=== PATIENT | female | born 1950 | race Caucasian/White ===

== ENCOUNTER 2016-08-13 17:36 | Emergency (ER) | payer BC, OTHER ==
[2016-08-13 18:03] VITALS: BP 135/61
--- NOTE | 2016-08-13 18:11 | UC ---
Knee Pain HPI - HPI Summary HPI Summary: fellwhile out walking on the track at the [facility] today---pain and swelling right knee - History of Current Complaint Chief Complaint: UCLowerExtremity Stated Complaint: RIGHT KNEE PAIN Time Seen by Provider: 08/13/16 17:56 Hx Obtained From: Patient ?: No Onset/Duration: Sudden Onset, Lasting Hours Severity Initially: Mild Severity Currently: Mild Location Of Injury: right knee Pain Intensity: 5 Pain Scale Used: 0-10 Numeric Character: Aching, Throbbing Aggravating Factor(s): Movement, Weight Bearing Alleviating Factor(s): Rest Associated Signs And Symptoms: Positive: Swelling, Redness, Bruising Able to Bear Weight: Yes - Allergies/Home Medications Allergies/Adverse Reactions: Allergies Allergy/AdvReac Type Severity Reaction Status Date / Time No Known Allergies Allergy Verified 08/13/16 18:03 Home Medications: Home Medications Naproxen Sodium 220 mg PO ONCE PRN 08/13/16 [History Confirmed 08/13/16] PMH/Surg Hx/FS Hx/Imm Hx Previously Healthy: No Endocrine History Of: Reports: Dyslipidemia Cardiovascular History Of: Reports: Cardiac Disorders Psychological History Of: Reports: Anxiety - Surgical History Surgical History: Yes Surgery Procedure, Year, and Place: RIGHT KNEE SURGERYS, TORN MINICUS, , RIGHT SHOULDER SURGERY. - Family History Family History: unknown cardiovascular issues in family lineage - Social History Occupation: Retired Lives: Alone Alcohol Use: Occasionally Substance Use Type: None Smoking Status (MU): Never Smoked Tobacco Review of Systems Constitutional: Negative Skin: Bruising - right knee Eyes: Negative ENT: Negative Respiratory: Negative Cardiovascular: Negative Gastrointestinal: Negative Genitourinary: Negative Motor: Negative Neurovascular: Negative Musculoskeletal: Arthralgia - right knee, Edema - right knee Neurological: Negative Psychological: Negative All Other Systems Reviewed And Are Negative: Yes Physical Exam Triage Information Reviewed: Yes Appearance: Well-Appearing, Well-Nourished, Pain Distress - mild Vital Signs: Initial Vital Signs Temp 98.5 F 08/13/16 17:57 Pulse 72 08/13/16 17:57 Resp 22 08/13/16 17:57 BP 135/61 08/13/16 17:57 Pulse Ox 100 08/13/16 17:57 Vital Signs Reviewed: Yes Eye Exam: Normal Eyes: Positive: Conjunctiva Clear ENT Exam: Normal ENT: Positive: Normal ENT inspection, Hearing grossly normal. Negative: Nasal congestion, Nasal drainage, Tonsillar swelling, Tonsillar exudate, Trismus, Muffled/hoarse voice Neck exam: Normal Neck: Positive: Supple, Nontender, No Lymphadenopathy Respiratory Exam: Normal Respiratory: Positive: Chest non-tender, Lungs clear, Normal breath sounds, No respiratory distress, No accessory muscle use Cardiovascular Exam: Normal Cardiovascular: Positive: RRR, No Murmur, Pulses Normal, Brisk Capillary Refill Musculoskeletal Exam: Other Musculoskeletal: Positive: Strength Intact, ROM Intact, Edema @ - right knee Neurological Exam: Normal Neurological: Positive: Alert, Muscle Tone Normal Psychological Exam: Normal Psychological: Positive: Normal Response To Family Skin: Positive: Other - brusing and redness on right knee Diagnostics - Laboratory Diagnostic Studies Completed/Ordered: no acute changes in right knee, osteoarthris Knee Pain Course/Dx - Course Course Of Treatment: carey, rice, aleeve, tylenol, follow with pcp - Differential Dx/Diagnosis Differential Diagnosis/HQI/PQRI: Contusion, Fracture (Closed), Internal Derangement Of Knee, Sprain, Strain Provider Diagnoses: Right knee contusion Discharge - Discharge Plan Condition: Stable Disposition: HOME Patient Education Materials: Acetaminophen (By mouth), Naproxen (By mouth), Contusion in Adults (ED), Knee Pain (ED), RICE Therapy (ED) Referrals: Hi Sykes MD [Primary Care Provider] - 5 Days
[2016-08-13] MEDS ORDERED: Acetaminophen TAB* 325 MG PO ONE (18:12)
--- NOTE | 2016-08-13 18:57 | RAD ---
Indication: Knee pain after fall. 4 views of the right knee demonstrates degenerative changes of the patellofemoral joint as well as joint space narrowing in the lateral compartment. Valgus deformity is noted. IMPRESSION: Degenerative changes of the patellofemoral joint as well as in the lateral compartment of the left knee.
== END 2016-08-13 19:15 | disposition home or self-care (01) ==
LOC: UCCORT 17:36
DX: S80.01XA Contusion of right knee, initial encounter (principal); M17.11 Unilateral primary osteoarthritis, right knee; W19.XXXA Unspecified fall, initial encounter; Y93.01 Activity, walking, marching and hiking; Y92.9 Unspecified place or not applicable; Z98.890 Other specified postprocedural states
CPT/HCPCS: 99212; A9270-GY; G0463

== ENCOUNTER 2016-11-07 21:13 | Emergency (ER) | payer BC ==
[2016-11-07 22:01] VITALS: BP 140/61
[2016-11-07] MEDS ORDERED: Ibuprofen TAB* 600 MG PO ONE (22:03)
--- NOTE | 2016-11-07 22:22 | UC ---
Lower Extremity/Ankle HPI - History of Current Complaint Stated Complaint: LEFT FOOT PAIN FROM FALL Time Seen by Provider: 11/07/16 21:57 Hx Obtained From: Patient ?: No Onset/Duration: Sudden Onset - twisted foot missing a step at the playground chasing 2 1/2 yo grand daughter., Lasting Hours - 5, Still Present Aggravating Factor(s): Standing, Ambulation Alleviating Factor(s): Rest, Elevation Able to Bear Weight: Yes - Risk Factors Gout Risk Factors: Age Over 40 - Allergies/Home Medications Allergies/Adverse Reactions: Allergies Allergy/AdvReac Type Severity Reaction Status Date / Time No Known Allergies Allergy Verified 11/07/16 21:50 PMH/Surg Hx/FS Hx/Imm Hx Endocrine History Of: Reports: Dyslipidemia Cardiovascular History Of: Reports: Cardiac Disorders Psychological History Of: Reports: Anxiety - Surgical History Surgical History: Yes Surgery Procedure, Year, and Place: RIGHT KNEE SURGERYS, TORN MINICUS, , RIGHT SHOULDER SURGERY. - Family History Known Family History: Positive: Diabetes Family History: unknown cardiovascular issues in family lineage - Social History Occupation: Retired Lives: With Family Alcohol Use: Occasionally Substance Use Type: None Smoking Status (MU): Never Smoked Tobacco Review of Systems Musculoskeletal: Arthralgia All Other Systems Reviewed And Are Negative: Yes Physical Exam Triage Information Reviewed: Yes Appearance: Well-Appearing, Well-Nourished, Pain Distress - with exam of the foot Vital Signs Reviewed: Yes Eyes: Positive: Conjunctiva Clear Neck exam: Normal Respiratory Exam: Normal Cardiovascular Exam: Normal Musculoskeletal: Positive: ROM Limited @ - left foot, unable to walk., Other: - Tenderness over the 5th metatarsal base. Neurological Exam: Normal Psychological Exam: Normal Skin Exam: Normal Lower Extremity Course/Dx - Differential Dx/Diagnosis Differential Diagnosis/HQI/PQRI: Dislocation, Fracture (Closed), Fracture (Open) , Sprain Provider Diagnoses: Fracture left 5th metatarsal Discharge - Discharge Plan Condition: Stable Disposition: HOME Patient Education Materials: Foot Fracture in Adults (ED) Referrals: Hi Sykes MD [Primary Care Provider] - Brian Arroyo MD [Medical Doctor] - 2 Days (Follow up left foot fracture.)
--- NOTE | 2016-11-07 22:30 | RAD ---
HISTORY: Trauma, pain over base of fifth metatarsal of left foot COMPARISONS: June 12, 2015 VIEWS: 3, Frontal, lateral, and oblique views of the left foot FINDINGS: BONE DENSITY: Normal. BONES: There is a nondisplaced fracture of the distal fourth metatarsal. There is a transverse nondisplaced fracture of the proximal fifth metatarsal, approximately 2.4 cm from the base. There is a nondisplaced fracture of the base of the fifth metatarsal. JOINTS: There is no arthropathy. ALIGNMENT: There is no dislocation. SOFT TISSUES: Unremarkable. OTHER FINDINGS: None. IMPRESSION: 2 NONDISPLACED FRACTURES OF THE PROXIMAL FIFTH METATARSAL WITH A NONDISPLACED FRACTURE OF THE DISTAL FOURTH METATARSAL
== END 2016-11-07 22:53 | disposition home or self-care (01) ==
LOC: UCCORT 21:13
DX: S92.355A Nondisplaced fracture of fifth metatarsal bone, left foot, initial encounter for closed fracture (principal); S92.345A Nondisplaced fracture of fourth metatarsal bone, left foot, initial encounter for closed fracture; X50.1XXA Overexertion from prolonged static or awkward postures, initial encounter; Y93.02 Activity, running; Y92.838 Other recreation area as the place of occurrence of the external cause; E78.5 Hyperlipidemia, unspecified; F41.9 Anxiety disorder, unspecified
CPT/HCPCS: 99213; A9270-GY; G0463

== ENCOUNTER 2017-11-06 19:57 | Emergency (ER) | payer BC, MEDICARE ==
[2017-11-06 20:39] VITALS: BP 125/62
--- NOTE | 2017-11-06 20:40 | UC ---
Respiratory Complaint HPI - HPI Summary HPI Summary: 67 y/o female presents to the urgent care c/o sore throat, nasal congestion and yellowish nasal discharge w/ dry cough for the past 4 days. Pt reports low grade fever w/ mild sinus pain and pressure. Pt has taken Aleve PO to alleviate symptoms. Pt denies SOB, chest pain, abdominal pain, N/V/D. Pt has Hx of recurrnet sinusitis. - History of Current Complaint Chief Complaint: UCGeneralIllness Stated Complaint: UPPER RESPIRATORY Time Seen by Provider: 11/06/17 20:40 Hx Obtained From: Patient Onset/Duration: Gradual Onset, Lasting Days - 4 days, Still Present, Worse Since - yesterday Timing: Constant Severity Initially: Mild Severity Currently: Moderate Pain Intensity: 4 Pain Scale Used: 0-10 Numeric Character: Cough: Nonproductive Aggravating Factors: Recumbent Position Alleviating Factors: Nothing Associated Signs And Symptoms: Positive: Chills, URI, Nasal Congestion, Sinus Discomfort - Risk Factors Pulmonary Embolism Risk Factors: Negative Cardiac Risk Factors: Negative Pseudomonas Risk Factors: Negative Tuberculosis Risk Factors: Negative - Allergies/Home Medications Allergies/Adverse Reactions: Allergies Allergy/AdvReac Type Severity Reaction Status Date / Time No Known Allergies Allergy Verified 11/06/17 20:31 Home Medications: Home Medications Aspirin [Adult Aspirin] 81 mg PO BEDTIME 11/06/17 [History Confirmed 11/06/17] Cholecalciferol (Vitamin D3) [Vitamin D3] 2,000 unit PO DAILY 11/06/17 [History Confirmed 11/06/17] Fluoxetine HCl [Prozac] 10 mg PO DAILY 11/06/17 [History Confirmed 11/06/17] Gluc Bowser/Chondro Bowser A/Vit C/Mn [Glucosamine Chondroitin Tab] 1 tab PO DAILY 11/06 [History Confirmed 11/06/17] PMH/Surg Hx/FS Hx/Imm Hx Previously Healthy: Yes Endocrine History: Dyslipidemia Cardiovascular History: Hypertension Psychological History: Anxiety - Surgical History Surgical History: Yes Surgery Procedure, Year, and Place: RIGHT KNEE SURGERYS, TORN MINICUS SX X 2, , RIGHT SHOULDER SURGERY. - Family History Known Family History: Positive: Diabetes Family History: unknown cardiovascular issues in family lineage - Social History Occupation: Retired Lives: With Family Alcohol Use: Occasionally Substance Use Type: None Smoking Status (MU): Never Smoked Tobacco Review of Systems Constitutional: Negative Skin: Negative Eyes: Negative ENT: Sore Throat, Nasal Discharge, Sinus Congestion, Sinus Pain/Tenderness Respiratory: Cough - dry Cardiovascular: Negative Gastrointestinal: Negative Genitourinary: Negative Motor: Negative Neurovascular: Negative Musculoskeletal: Negative Neurological: Negative Psychological: Negative Is Patient Immunocompromised?: No All Other Systems Reviewed And Are Negative: Yes Physical Exam - Summary Physical Exam Summary: Vitals: reviewed General: Well developed, well-nourished female patient with NAD. Head and face: Normocephalic and atraumatic, Positive tenderness over the frontal and maxillary sinuses.. Eyes: PERRLA, EOMI x 2. Normal conjunctiva. No eye discharge. ENT: Ears and TM with normal limits. Nose: edematous and erythematous nasal mucosa with with yellowish discharge and erythematous mucosa. Pharynx with erythema, no exudate. +PND yellowish Neck: Supple, no JVD, no carotid bruits and no lymphadenopathy. Lungs: clear, no rales, no rhonchi, no wheezes. CVS: RRR, S1 and S2 present no murmurs or gallops appreciated. Abdomen: soft nontender with positive bowel sounds. Extremities: no edema noted. Neuro: WNL. Skin: warm and dry Triage Information Reviewed: Yes Vital Signs: Initial Vital Signs Temp 97.3 F 11/06/17 20:36 Pulse 70 11/06/17 20:36 Resp 17 11/06/17 20:36 BP 125/62 11/06/17 20:36 Pulse Ox 100 11/06/17 20:36 Diagnostic Evaluation - Laboratory O2 Sat by Pulse Oximetry: 100 Respiratory Course/Dx - Course Course Of Treatment: 67 y/o female presents to the urgent care c/o sore throat, nasal congestion and yellowish nasal discharge w/ dry cough for the past 4 days. Pt reports low grade fever w/ mild sinus pain and pressure. Pt has taken Aleve PO to alleviate symptoms. Pt denies SOB, chest pain, abdominal pain, N/V /D. Pt has Hx of recurrent sinusitis. Hx obtained. Pt w/ a sinusitis on examination. Pt Rx Flonase Nasal [place] and Loratadine Po. However Pt requested ABx Tx. Pt advised to try to alleviate symptoms first and if worsening symptoms to start Augmenting PO in 2-3 days. Pt Advised to increase fluid intake and rest. Pt Understood and agreed w/ plan of care. - Differential Dx/Diagnosis Differential Diagnosis/HQI/PQRI: Asthma, Bronchitis, Influenza, Laryngitis, Lower Resp Infection, Sinusitis Provider Diagnoses: 1- Acute sinusitis Discharge - Sign-Out/Discharge Documenting (check all that apply): Discharge/Admit/Transfer - D/C home - Discharge Plan Condition: Stable Disposition: HOME Prescriptions: Amoxicillin/Clavulanate TAB* [Augmentin TAB 875*] 875 mg PO BID #20 tab Fluticasone NASAL SPRAY 50MCG* [Flonase NASAL SPRAY 50MCG*] 2 spray BOTH NARES DAILY #1 btl Loratadine/Pseudoephedrine [Loratadine-D 12 Hour Tablet] 1 each PO BID #20 tab.er.12h Patient Education Materials: Sinusitis (ED) Referrals: Hi Sykes MD [Primary Care Provider] - 1 Week Additional Instructions: 1- Please increase fluid intake and rest. 2-Use Flonase as directed to help drain fluid. Also buy saline drops to clear sinuses 3-Take Loratadine PO to alleviates sinus congestion, If symptoms do not improve in 2 days please start taking Augmentin PO and take full course of antibiotic. 4-Return to the clinic or PCP if symptoms do not improve for further management and treatment - Billing Disposition and Condition Condition: STABLE Disposition: HOME
== END 2017-11-06 21:33 | disposition home or self-care (01) ==
LOC: UCCORT 19:57
DX: J01.90 Acute sinusitis, unspecified (principal); F41.9 Anxiety disorder, unspecified
CPT/HCPCS: 99212; G0463

== ENCOUNTER 2017-12-07 21:41 | Emergency (ER) | payer MEDICARE ==
[2017-12-07 21:55] VITALS: BP 131/71
--- NOTE | 2017-12-07 22:04 | UC ---
Knee Pain HPI - HPI Summary HPI Summary: 67 yo female twisted knee today on uneven ground initially marked pain with movement no ROM seem good knee wants to buckle on occasion - History of Current Complaint Chief Complaint: UCLowerExtremity Stated Complaint: KNEE (L) COMPLAINT Time Seen by Provider: 12/07/17 21:56 Hx Obtained From: Patient Onset/Duration: Sudden Onset, Lasting Hours Severity Initially: Moderate Severity Currently: Moderate Pain Intensity: 5 Pain Scale Used: 0-10 Numeric - Allergies/Home Medications Allergies/Adverse Reactions: Allergies Allergy/AdvReac Type Severity Reaction Status Date / Time No Known Allergies Allergy Verified 11/06/17 20:31 Home Medications: Home Medications Ibuprofen TAB* [Advil TAB*] 200 mg PO Q6H PRN 12/07/17 [History Confirmed ] PMH/Surg Hx/FS Hx/Imm Hx Endocrine History: Dyslipidemia Cardiovascular History: Hypertension - Surgical History Surgical History: Yes Surgery Procedure, Year, and Place: RIGHT KNEE SURGERYS, TORN MINICUS SX X 2, , RIGHT SHOULDER SURGERY. - Family History Known Family History: Positive: Hypertension, Diabetes Family History: unknown cardiovascular issues in family lineage - Social History Alcohol Use: Occasionally Substance Use Type: None Smoking Status (MU): Never Smoked Tobacco Review of Systems Constitutional: Negative Skin: Negative Eyes: Negative ENT: Negative Respiratory: Negative Cardiovascular: Negative Gastrointestinal: Negative Genitourinary: Negative Motor: Negative Neurovascular: Negative Musculoskeletal: Arthralgia Neurological: Negative Psychological: Negative Is Patient Immunocompromised?: No All Other Systems Reviewed And Are Negative: Yes Physical Exam Triage Information Reviewed: Yes Appearance: Well-Appearing, No Pain Distress, Well-Nourished Vital Signs: Initial Vital Signs Temp 99.3 F 12/07/17 21:50 Pulse 73 12/07/17 21:50 Resp 18 12/07/17 21:50 BP 131/71 12/07/17 21:50 Pulse Ox 98 12/07/17 21:50 Eyes: Positive: Conjunctiva Clear ENT: Positive: Hearing grossly normal. Negative: Nasal congestion, Trismus, Muffled voice, Hoarse voice Neck: Positive: Supple Respiratory: Positive: Lungs clear, Normal breath sounds, No respiratory distress, No accessory muscle use Cardiovascular: Positive: RRR, No Murmur Musculoskeletal: Positive: ROM Intact, Other: - antalgic gait, knee feels stable , tender lateral joint line (L) Neurological: Positive: Alert Psychological Exam: Normal Skin Exam: Normal Diagnostics - Radiology No standard instances Xray Interpretation: No Acute Changes - djd Radiology Interpretation Completed By: ED Physician Knee Pain Course/Dx - Differential Dx/Diagnosis Provider Diagnoses: left knee injury. ? meniscal tear Discharge - Sign-Out/Discharge Documenting (check all that apply): Discharge/Admit/Transfer - Discharge Plan Condition: Stable Disposition: HOME Patient Education Materials: Knee Pain (ED) Referrals: Brian Arroyo MD [Medical Doctor] - As Soon As Possible Hi Sykes MD [Primary Care Provider] - Additional Instructions: ice twice daily use your knee brace when up cane advil or aleve I suggest you see the Dr. Arroyo in follow up you may need and MRI of your knee - Billing Disposition and Condition Condition: STABLE Disposition: Home
--- NOTE | 2017-12-08 08:01 | RAD ---
Indication: Anterior and posterior LEFT knee pain and instability following twisting injury. Comparison: October 04, 2009 Technique: LEFT knee: AP, tunnel, lateral, sunrise views. Report: Small suprapatellar joint effusion. Negative for fracture or malalignment. Mild osteophytosis and tricompartmental joint space narrowing. Mild nonfocal soft tissue swelling. IMPRESSION: 1. Negative for fracture. 2. Kellgren and Carlos grade 2 osteoarthritis. 3. Small joint effusion.
== END 2017-12-07 22:28 | disposition home or self-care (01) ==
LOC: UCCORT 21:41
DX: S89.92XA Unspecified injury of left lower leg, initial encounter (principal); X50.0XXA Overexertion from strenuous movement or load, initial encounter; Y93.9 Activity, unspecified; Y92.9 Unspecified place or not applicable; Y99.9 Unspecified external cause status; I10 Essential (primary) hypertension
CPT/HCPCS: 99213; G0463

== ENCOUNTER 2019-10-15 12:05 | Emergency (ER) | payer MEDICARE ==
[2019-10-15 12:34] VITALS: BP 131/58
--- NOTE | 2019-10-15 12:34 | UC ---
Skin Complaint HPI - HPI Summary HPI Summary: 69 y/o female presents to the urgent care c/o tick in her abdomen since yesterday. Pt reports she went outside yesterday to do some gardening and in the afternoon noticed a tick in her abdomen. She was unable to remove and the tick still alive. Pt denies fever, rash, joint pains, URI symptoms, cough, SOB , sick contacts, abdominal pain, N/V/D. Hx of tick bites. - History of Current Complaint Time Seen by Provider: 10/15/19 12:33 Stated Complaint: TICK Hx Obtained From: Patient Onset/Duration: Sudden Onset, Lasting Days - 1 day, Still Present - tick still present in her abdomen and it is alive Skin Exposure Onset/Duration: Days Ago - 1 day Onset Severity: Mild Current Severity: Mild Pain Intensity: 0 Pain Scale Used: 0-10 Numeric Location: Discrete - abdomen below umbilicus Character: Redness Aggravating Factor(s): Touch Alleviating Factor(s): Nothing Associated Signs & Symptoms: Positive: Rash - tick bite w/ alive tick still present in her abdomen Related History: Possible Reaction to: Insect - tick - Allergy/Home Medications Allergies/Adverse Reactions: Allergies Allergy/AdvReac Type Severity Reaction Status Date / Time No Known Allergies Allergy Verified 10/15/19 12:34 Home Medications: Home Medications Atorvastatin* [Lipitor 20 MG*] 20 mg PO BEDTIME 05/28/15 [History Confirmed ] Propranolol TAB* [Inderal TAB*] 80 mg PO DAILY 05/28/15 [History Confirmed 10/14] traZODone TAB* [Desyrel TAB*] 50 mg PO BEDTIME 05/28/15 [History Confirmed 10/14] Aspirin [Adult Aspirin] 81 mg PO BEDTIME 11/06/17 [History Confirmed 10/15/19] Cholecalciferol (Vitamin D3) [Vitamin D3] 2,000 unit PO DAILY 11/06/17 [History Confirmed 10/15/19] Fluoxetine HCl [Prozac] 10 mg PO DAILY 11/06/17 [History Confirmed 10/15/19] Gluc Bowser/Chondro Bowser A/Vit C/Mn [Glucosamine Chondroitin Tab] 1 tab PO DAILY 11/06 [History Confirmed 10/15/19] Bacitracin OINTMENT* 1 applic TOPICAL BID #1 tube 10/15/19 [Rx] Loratadine/Pseudoephedrine [Loratadine-D 12 Hour Tablet] 1 each PO BID PRN 10/14 [History Confirmed 10/15/19] PMH/Surg Hx/FS Hx/Imm Hx Previously Healthy: Yes Endocrine History: Dyslipidemia Cardiovascular History: Hypertension - Surgical History Surgical History: Yes Surgery Procedure, Year, and Place: RIGHT KNEE SURGERYS, TORN MINICUS SX X 2, , RIGHT SHOULDER SURGERY. - Family History Known Family History: Positive: Hypertension, Diabetes Family History: unknown cardiovascular issues in family lineage - Social History Occupation: Retired Lives: With Family Alcohol Use: Occasionally Substance Use Type: None Smoking Status (MU): Never Smoked Tobacco Review of Systems All Other Systems Reviewed And Are Negative: Yes Constitutional: Positive: Negative Skin: Positive: Rash - alive tick still present in her abdomen Eyes: Positive: Negative ENT: Positive: Negative Respiratory: Positive: Negative Cardiovascular: Positive: Negative Gastrointestinal: Positive: Negative Genitourinary: Positive: Negative Motor: Positive: Negative Neurovascular: Positive: Negative Musculoskeletal: Positive: Negative Neurological/Mental Status: Positive: Negative Psychological: Positive: Negative Is Patient Immunocompromised?: No Physical Exam - Summary Physical Exam Summary: Vital Signs Reviewed: Yes General: well developed, well nourished female sitting in the examining table w/ o any apparent distress. Eyes: Positive: Conjunctiva Clear - PERRLA, EOMI ENT: Positive: Normal ENT inspection, Hearing grossly normal, Pharynx normal, TMs normal Neck: Positive: Supple, Nontender, No Lymphadenopathy Respiratory: Positive: Chest nontender, Lungs clear, Normal breath sounds Cardiovascular: Positive: RRR, No Murmur, Pulses Normal Abdomen Description: Positive: Nontender, No Organomegaly, Soft. Negative: CVA Tenderness (R), CVA Tenderness (L) Bowel Sounds: Positive: Present Musculoskeletal: Positive: Strength Intact, ROM Intact, No Edema Neurological Exam: Normal Psychological Exam: Normal Skin: Positive: rashes: below umbilicus with an engorged alive tick present, non tender to palpation., no swelling or drainage observed. Triage Information Reviewed: Yes Course/Dx - Course Course Of Treatment: 69 y/o female presents to the urgent care c/o tick in her abdomen since yesterday. Pt reports she went outside yesterday to do some gardening and in the afternoon noticed a tick in her abdomen. She was unable to remove and the tick still alive. Pt denies fever, rash, joint pains, URI symptoms, cough, SOB , sick contacts, abdominal pain, N/V/D. Hx of tick bites. Hx obtained. Pt w/ positive engorged alive tick present below her umbilicus, non tender to palpation, no swelling or drainage observed on examination. Tick was removed from abdomen using twister technique. After tick removal and the skin cleansing and Bacitracin oint applied. Antibiotic prophylaxis with Doxycycline given to the patient to prevent lyme Disease.. Pt tolerated well medication. Pt advised to observe the area for the development or Erythema Migrans for upto 30 days following exposure. Pt Rx Bacitracin oin as directed below to prevent infection. Advised if he develops fever or erythema Migrans to return to the clinic or PCP for further treatment .Pt understood and agreed with plan of care. - Differential Diagnoses - Skin Complaint Differential Diagnoses: Abscess, MRSA, Tick Born Illness, Urticaria, Other - bee sting, insect bite - Diagnoses Provider Diagnosis: Tick bite of abdomen Discharge ED - Sign-Out/Discharge Documenting (check all that apply): Patient Departure - D/C home All imaging exams completed and their final reports reviewed: No Studies - Discharge Plan Condition: Stable Disposition: HOME Prescriptions: Bacitracin OINTMENT* 1 applic TOPICAL BID #1 tube Patient Education Materials: Tick Bite (ED) Referrals: Hi Sykes MD [Primary Care Provider] - 1 Week Additional Instructions: 1- Please observe the area for the development or Erythema Migrans for upto 30 days following exposure. Components of the tick saliva can cause transient erythema that should not be confused with Erythema Migrans. If you develop the bull's eye rash, fever, joint pains please return to the urgent care or f/u with your PCP or Dr Nicholas for further management. Apply Bacitracin oint around tick bite as directed 2-Antibiotic prophylaxis with Doxycycline was given to you today to prevent lyme Disease. Lyme serology can be drawn in 2 weeks with your PCP to r/o Lyme disease since there is probability of negative results at early exposure. - Billing Disposition and Condition Condition: STABLE Disposition: Home - Attestation Statements Provider Attestation: This patient was not seen by me. Chart reviewed. I was available for consult. MARYCARMEN
[2019-10-15] MEDS ORDERED: DOXYcycline CAP(*) 100 MG PO ONE (12:46)
== END 2019-10-15 13:17 | disposition home or self-care (01) ==
LOC: UCCORT 12:05
DX: S30.861A Insect bite (nonvenomous) of abdominal wall, initial encounter (principal); W57.XXXA Bitten or stung by nonvenomous insect and other nonvenomous arthropods, initial encounter; Y93.H2 Activity, gardening and landscaping; Y92.096 Garden or yard of other non-institutional residence as the place of occurrence of the external cause; E78.5 Hyperlipidemia, unspecified; I10 Essential (primary) hypertension; Z79.899 Other long term (current) drug therapy
CPT/HCPCS: 99212; A9270-GY; G0463